=== PATIENT | male | born 1985 | race Caucasian/White ===

== ENCOUNTER 2018-02-06 17:32 | Emergency (ER) | payer OTHER ==
[2018-02-06 17:36] VITALS: BP 148/93; PULSE 65; TEMP 98.8; BMI 34.5
--- NOTE | 2018-02-06 18:20 | PDOC ---
History of Present Illness - General Stated Complaint: STEPPED ON JULIA NAIL Time Seen by Provider: 02/06/18 18:00 History Source: Patient Exam Limitations: No Limitations - History of Present Illness Initial Comments: CHIEF COMPLAINT: 32 y/o afebrile male who stepped on a nail today. HISTORY OF PRESENT ILLNESS: He states he stepped on a julia nail while taking the garbage out. He states it did puncture the skin of the bottom of his left foot. The nail went through the bottom of his shoe. He states the bleeding has stopped. He does not think he is UTD with tetanus. Vital signs on arrival are within normal limits. REVIEW OF SYSTEMS: GENERAL/CONSTITUTIONAL: No fever/chills. No weakness. No weight change. MUSCULOSKELETAL: No joint or muscle swelling or pain. No neck or back pain. SKIN: +puncture wound to bottom of left foot NEUROLOGIC: No headache, vertigo, loss of consciousness, or loss of sensation. PHYSICAL EXAM: VITAL_SIGNS: within normal limits GENERAL_APPEARANCE: alert, cooperative, mild obvious discomfort. MENTAL_STATUS: speech clear, oriented X 3, responds appropriately to questions. NEURO: motor intact and sensory intact in injured extremity. EXTREMITIES: good pulse in injured extremity. Small puncture wound of bottom middle left foot. No active bleeding. SKIN: warm, dry, good color. Past History - Past Medical History Allergies/Adverse Reactions: Allergies Allergy/AdvReac Type Severity Reaction Status Date / Time No Known Allergies Allergy Verified 02/06/18 18:45 Home Medications: Ambulatory Orders Ciprofloxacin [Cipro -] 500 mg PO Q12H #10 tablet 02/06/18 - Suicide/Smoking/Psychosocial Hx Smoking History: Never smoked Hx Alcohol Use: No Drug/Substance Use Hx: No *Physical Exam - Vital Signs Last Vital Signs Temp Pulse Resp BP Pulse Ox 98.8 F 65 16 148/93 100 02/06/18 17:34 02/06/18 17:34 02/06/18 17:34 02/06/18 17:34 02/06/18 17:34 Medical Decision Making - Medical Decision Making A/P: 32 y/o afebrile male with puncture wound of julia nail to bottom of left foot. Gave tetanus and discharged with rx for cipro. Instructed him to keep wound clean and dry. The patient verbalizes understanding of all instructions, has no further questions and is awaiting discharge. *DC/Admit/Observation/Transfer Diagnosis at time of Disposition: Puncture wound - Discharge Dispostion Disposition: HOME Condition at time of disposition: Good - Prescriptions Prescriptions: Ciprofloxacin [Cipro -] 500 mg PO Q12H #10 tablet - Referrals Referrals: Thiago Rodriguez MD [Primary Care Provider] - - Patient Instructions Printed Discharge Instructions: DI for Puncture Wound Additional Instructions: Discharge Instructions: -You were given a tetanus shot today; you are now up to date for 10 years -A prescription for antibiotics has been sent to your pharmacy; please take for 5 days -Keep area clean Instrucciones de descarga: -Te dieron natahn inyeccin de ttanos hoy; usted est actualizado por 10 aos -Nathan receta de antibiticos cesar sido enviada a chicas farm[employer]; por favor tome por 5 barnard -Mantenga limpia el jerry Print Language: [place] - Post Discharge Activity
[2018-02-06] MEDS ORDERED: TETANUS AND DIPHTHERIA TOXOID 0.5 ML DISP.SYRIN IM ONE (19:00)
== END 2018-02-06 18:58 | disposition home or self-care (01) ==
LOC: JERFT 17:32
PROC: 3E0234Z Introduction of Serum, Toxoid and Vaccine into Muscle, Percutaneous Approach (ICD-10-PCS; principal; 2018-02-06)
DX: S91.332A Puncture wound without foreign body, left foot, initial encounter (principal); W45.0XXA Nail entering through skin, initial encounter; Y93.E9 Activity, other interior property and clothing maintenance; Y92.038 Other place in apartment as the place of occurrence of the external cause; Y99.8 Other external cause status
CPT/HCPCS: 99281-25